=== PATIENT | female | born 2005 | race African-American/Black ===

== ENCOUNTER 2024-01-19 23:25 | Emergency (ER) | payer MEDICAID ==
[~2024-01-19] VITALS: Ht 157.5 cm; Wt 49.0 kg
[2024-01-19 23:38] VITALS: O2SAT 99
[2024-01-20] MEDS ORDERED: MECLIZINE 25MG TABLET PO ONE
[2024-01-20] MEDS ORDERED: METOCLOPRAMIDE HCL 10MG/2ML VIAL IM ONE
[2024-01-20] MEDS ORDERED: KETOROLAC 30MG/ML VIAL IM ONE
[2024-01-20] MEDS ORDERED: DIPHENHYDRAMINE 50MG/ML VIAL IM ONE
[2024-01-20] MEDS: DIPHENHYDRAMINE 50MG/ML VIAL IM NR (01:02)
[2024-01-20] MEDS: METOCLOPRAMIDE HCL 10MG/2ML VIAL IM NR (01:02)
[2024-01-20] MEDS: KETOROLAC 30MG/ML VIAL IM NR (01:03)
[2024-01-20] MEDS: MECLIZINE 12.5MG TABLET PO NR (01:10)
[2024-01-20 02:04] VITALS: BP 108/82; PULSE 72; RESP 16; TEMP 36.66960; O2SAT 98
== END 2024-01-20 02:05 | disposition home or self-care (01) ==
LOC: ER 23:25
DX: R51.9 Headache, unspecified (principal)
CPT/HCPCS: 99284; 81025; 96372; J8597; J1200; J1885; J2765